=== PATIENT | female | born 1995 | race Caucasian/White ===

== ENCOUNTER → 2016-05-31 | Outpatient (CLI) | payer OTHER ==
[~2016-05-31] MED LIST: ADAP0.05 TOP; DICL-201 PO; GADAVIST IV PRN; RIZA10TA18 PO; SULF800T23 PO; TOPI25TA10 PO
--- NOTE | 2016-05-31 07:49 | DIAGNOSTIC IMAGING REPORT ---
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 This is unchanged since MRI of August 15, 2012. The configuration of the cerebellar tonsils is normal. The findings do not meet criteria for a Chiari 1 malformation. Electronically signed by: Evin Coffman M.D. 05/31/2016 10:18 AM Dictated Date/Time: 05/31/2016 10:16 AM ORIGINAL REPORT MRI OF THE BRAIN WITHOUT AND WITH IV CONTRAST CLINICAL HISTORY: Exertional headaches. COMPARISON STUDY: MRI of brain August 15, 2012. TECHNIQUE: Utilizing a 1.5 Crista magnet and dedicated coil, multiplanar, multiecho imaging of the brain was performed pre and postcontrast administration. IV administration of 6.5 mL of Gadavist contrast was uneventful. FINDINGS: There are no areas of restricted diffusion. No acute intracranial hemorrhage, midline shift or mass effect is present. Brain volume is normal. Ventricular system is normal. The basilar cisterns are patent. There are no extra-axial collections. Flow-voids for the major intracranial vessels are present. No intracranial mass or pathologic enhancement is identified. No areas of signal abnormality are identified. Calvarial signal is maintained. Orbits are unremarkable. There is mild polypoid mucosal thickening of the sphenoid and ethmoid sinuses. IMPRESSION: 1. Unremarkable MRI of the brain. 2. Mild mucosal thickening of the sphenoid and ethmoid sinuses. Electronically signed by: Evin Coffman M.D. 05/31/2016 7:48 AM Dictated Date/Time: 05/31/2016 7:39 AM
== END | disposition home or self-care (01) ==
LOC: C.MRIBC 06:56
PROVIDERS: ATTEND Psychiatry & Neurology Neurology
DX: G44.84 Primary exertional headache (principal)

== ENCOUNTER → 2016-11-29 | Outpatient (CLI) | payer OTHER ==
[~2016-11-29] MED LIST changes: -GADAVIST IV PRN
--- NOTE | 2016-11-29 16:17 | DIAGNOSTIC IMAGING REPORT ---
CERVICAL WITHOUT CONTRAST HISTORY: Pain. Neuropathy. NECK PAIN TECHNIQUE: Multiplanar multisequence MRI of the cervical spine was performed without the use of contrast. COMPARISON STUDY: None. FINDINGS: Signal characteristics the vertebral bodies as well as intervertebral discs are unremarkable. The characteristics of the cervical cord are within normal limits. Mild reversal of the normal cervical curvature. C2-C3: No significant central canal or neural foraminal narrowing. C3-C4: No significant central canal or neural foraminal narrowing. C4-C5: No significant central canal or neural foraminal narrowing. C5-C6: No significant central canal or neural foraminal narrowing. C6-C7: No significant central canal or neural foraminal narrowing. C7-T1: No significant central canal or neural foraminal narrowing. IMPRESSION: 1. No evidence for disc herniation or spinal stenosis. 2. Mild reversal of the normal cervical curvature consistent with muscular spasm. The above report was generated using voice recognition software. It may contain grammatical, syntax or spelling errors. Electronically signed by: Cy Perry M.D. 11/29/2016 4:16 PM Dictated Date/Time: 11/29/2016 4:12 PM
== END | disposition home or self-care (01) ==
LOC: C.MRIBC 15:21
PROVIDERS: ATTEND Physician Assistant
DX: M54.2 Cervicalgia (principal)

== ENCOUNTER → 2016-12-06 | Outpatient (CLI) | payer OTHER ==
[2016-12-06 14:28] LABS: BLOOD UREA NITROGEN 17 mg/dl (7-18); BUN/CREATININE RATIO 18.8 (10-20); CALCIUM 9.3 mg/dl (8.5-10.1); CARBON DIOXIDE 29 mmol/L (21-32); CHLORIDE 105 mmol/L (98-107); CREATININE 0.88 mg/dl (0.60-1.20); GLUCOSE 69 mg/dl (70-99); POTASSIUM 3.7 mmol/L (3.5-5.1); SODIUM 139 mmol/L (136-145)
[2016-12-13 12:53] LABS: ANTI-SS-A <1.0 NEG AI (<1.0 NEG); ANTI-SS-B <1.0 NEG AI (<1.0 NEG); IGA SERUM 119 mg/dL (81-463); TIS TRANS IGA 1 U/mL (<4); TRYPTASE**TC 34484X 6 ng/mL (<11); VITAMIN A** TC 921X 64 mcg/dL (38-98)
== END | disposition home or self-care (01) ==
LOC: C.LABBC 11:12
PROVIDERS: ATTEND Pediatrics Pediatric Hematology-Oncology
DX: L70.0 Acne vulgaris (principal); J30.9 Allergic rhinitis, unspecified; R53.83 Other fatigue; R20.2 Paresthesia of skin; R00.0 Tachycardia, unspecified

== ENCOUNTER → 2017-01-15 | Outpatient (CLI) | payer OTHER ==
[2017-01-15 17:34] LABS: BASO % 0.2 %; BASO ABS # 0.02 K/uL (0-0.2); COMPLETE YES; EOS % 2.5 %; HEMATOCRIT 41.7 % (37-47); IG% 0.2 %; LYMPH % 22.9 %; LYMPH ABS # 1.94 K/uL (1.2-3.4); MEAN CELL VOLUME 94.3 fL (80-100); MEAN CORPUSCULAR HEMOGLOBIN 31.2 pg (25-34); MEAN CORPUSCULAR HGB CONC 33.1 g/dl (32-36); MEAN PLATELET VOLUME 11.4 fL (7.4-10.4); MONO % 8.4 %; NEUT % 65.8 %; PLATELET COUNT 222 K/uL (130-400); RED BLOOD COUNT 4.42 M/uL (4.2-5.4); WHITE BLOOD COUNT 8.48 K/uL (4.8-10.8)
[2017-01-15 17:43] LABS: ALT/SGPT 17 U/L (12-78); AST/SGOT 16 U/L (15-37); BLOOD UREA NITROGEN 19 mg/dl (7-18); CALCIUM 9.4 mg/dl (8.5-10.1); CARBON DIOXIDE 27 mmol/L (21-32); CHLORIDE 105 mmol/L (98-107); CREATININE 0.89 mg/dl (0.60-1.20); GLUCOSE 74 mg/dl (70-99); POTASSIUM 3.9 mmol/L (3.5-5.1); SODIUM 139 mmol/L (136-145)
[2017-01-15 17:54] LABS: ALKALINE PHOSPHATASE 56 U/L (45-117); THYROID STIMULATING HORMONE 0.818 uIu/ml (0.300-4.500)
[2017-01-15 18:01] LABS: LYME DISEASE AB IGG NEG (NEG); LYME DISEASE AB IGM NEG (NEG)
[2017-01-17 14:50] LABS: EBV EARLY ANTIGEN AB <9.00 U/ML
== END | disposition home or self-care (01) ==
LOC: C.LABBC 13:58
PROVIDERS: ATTEND Psychiatry & Neurology Neurology
DX: G44.209 Tension-type headache, unspecified, not intractable (principal); R53.83 Other fatigue; B27.90 Infectious mononucleosis, unspecified without complication; R10.84 Generalized abdominal pain; M54.2 Cervicalgia; M54.5 Low back pain

== ENCOUNTER 2022-09-07 07:45 | Inpatient (IN) ==
--- NOTE | 2022-09-07 08:02 | History & Physical Report ---
Date of Service September 07, 2022 Assessment & Plan (1) Encounter for induction of labor: Plan: Patient is a 27 yo at 41 0/7 WGA presenting to labor and delivery for induction d/t postdates. Blood type: O+, GBS neg, rubella immune Plan to start oxytocin/Hannon and rupture membranes when able Proceed with labor and vaginal delivery (2) 40 weeks gestation of : Admission and Anticipated Discharge Date Admission Date: September 07, 2022 History of Present Illness Chief Complaint: induction of labor Primary Care Provider: Geovanna Tejada MD Patient is a 27 yo female currently at 41 0/7 WGA with an TIFFANY 08/31/2022 as determined by LMP who is here for induction of labor d/t post dates. 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 movement present; - fluid loss; - bloody show External FHT and external uterine monitors used; category 1 tracing; normal FHT variability Had regular appointments with OB. Labs: (01/22/2023) Blood type: O+ Antibody screen: neg Hgb: 12.1 (today) Hct: 35.6 (today) WBC: 7.40 (today) Plt: 203 (today) Rubella: immune VDRL/RPR: neg Gonorrhea: neg Chlamydia: neg HIV: neg HbSAg: neg GBS: neg Allergies Allergy/AdvReac Type Severity Reaction Status Date / Time No Known Allergies Allergy Verified 09/06/22 13:37 Home Medications Medication Instructions Recorded Confirmed Type epinephrine 0.3 mg/0.3 mL 0.3 mg (0.3 mL) IM Q10M PRN 10/16/19 09/07/22 Rx injection, auto-injector anaphylaxis #2 ea prenat.vits,andi,[id number] 1 tab PO DAILY 01/19/22 09/07/22 History Patient History Medical History (Updated 09/07/22 @ 08:00 by Rhonda Lin DO) Abdominal pain Anxiety Bloating Constipation History of vesicoureteral reflux IBS (irritable bowel syndrome) Microscopic hematuria Migraines POTS (postural orthostatic tachycardia syndrome) follows with Kip Gloria Recurrent UTI Scarring of kidney Varicella vaccination Surgical History History of colonoscopy History of general anesthesia given [place] for urology procedure as a child Family History Mother Mast cell activation Melanoma Sister Mast cell activation Brother Allergic rhinitis Father Eczema Melanoma Grandfather (Paternal) Prostate cancer Other No family history of adverse response to anesthesia Denies family history of Ovarian cancer Breast cancer Colorectal cancer Social History (Updated 09/07/22 @ 07:59 by Sarah Vaz RN) Smoking Status: Never smoker Second Hand Exposure: No; Do You Dip or Chew Tobacco: No; Hx Alcohol Use: No (Not during ) Hx Substance Use: No Preferred Language: [place] Rican Communication Ability: Effective Bulb Packer Required: No Beliefs That Will Affect Care: None marital status: marital status details: Sotero Jewell (23) [phone] Current Living Situation: Spouse and Family Current Living Situation Comment: lives with spouse, parents, sister, dogs current occupational status: employed current occupation: Med Student Other Information That Helps Us Care for You: No Feels Safe at Home: Yes Safety Concerns: Feels Safe At This Time Diet: regular Assistive Devices: None Review of Systems Denies fever, chills, sweats. Denies SOB, difficulty breathing, chest pain, palpitations, and chest pressure. Denies breast pain. Denies dysuria. Denies headache or changes in vision. Physical Exam Genitourinary: Manual OB Exam: + cervical dilation fingertip, + cervical effacement 60% and + station -2 OB Exam Monitor Tracing: + external FHT monitor used, + external uterine monitor used, + category I and + normal FHT variability; no early decelerations present, no late decelerations present and no variable decelerations Supervising Physician Co-Signing Physician Notes Patient seen with resident and agree with the above findings and plan Resident Activity Tracking Resident Involvement: Resident Care Provided Care Provided: OB Delivery
[2022-09-07] MEDS ORDERED: LIDOCAINE 1% LOCAL 20 ML VIAL INFIL PRN (08:35)
[2022-09-07] MEDS ORDERED: OXYTOCIN 30 UNITS/500 ML BAG IV PRN ×2 (08:35→08:37)
[2022-09-07 09:08] LABS: Hematocrit (blood only) 35.6 % (37.0-47.0); Hemoglobin 12.1 g/dl (12.0-16.0); Mean Corpuscular Hemoglobin 31.5 pg (25.0-34.0); Mean Corpuscular Volume 92.7 fL (80.0-100.0); Mean Platelet Volume 10.7 fL (9.4-12.4); Platelet Count 203 K/uL (130-400); RDW Coefficient of Variation 13.2 % (11.5-14.5); RDW Standard Deviation 45.1 fL (36.4-46.3); Red Blood Count 3.84 M/uL (4.20-5.40)
[2022-09-07] MEDS: LACTATED RINGER'S 1,000 ML IV PRN ×3 (09:26→16:41)
[2022-09-07] MEDS ORDERED: SODIUM CHLORIDE 0.9% PF INJ 10 ML VIAL ONE (13:39)
[2022-09-07] MEDS ORDERED: fentaNYL citrate PF 100 MCG/2 ML VIAL ONE (13:39)
[2022-09-07] MEDS ORDERED: ePHEDrine sulfate 50 MG/ML AMP ONE (13:39)
[2022-09-07] MEDS ORDERED: BUPIVACAINE 0.25% PF 30 ML VIAL ONE (13:39)
[2022-09-07] MEDS ORDERED: LIDOCAINE 2%/EPINEPHRINE 1:200,000 20 ML PF ONE (13:39)
[2022-09-07] MEDS ORDERED: fentaNYL 2MCG/ML ROPIVACAINE 1.25MG/ML 100 ML BAG EPI ONE (13:40)
[2022-09-07] MEDS ORDERED: SODIUM CHLORIDE 0.9% PF INJ 10 ML VIAL EPI PRN (13:50)
[2022-09-07] MEDS ORDERED: fentaNYL 2MCG/ML ROPIVACAINE 1.25MG/ML 100 ML BAG EPI PRN (13:50)
[2022-09-07] MEDS ORDERED: SODIUM CHLORIDE 0.9% PF INJ 10 ML VIAL EPI STA (13:50)
[2022-09-07] MEDS ORDERED: LIDOCAINE 2%/EPINEPHRINE 1:200,000 20 ML PF EPI STA (13:50)
[2022-09-07] MEDS ORDERED: fentaNYL citrate PF 100 MCG/2 ML VIAL EPI PRN (13:50)
[2022-09-07] MEDS ORDERED: fentaNYL citrate PF 100 MCG/2 ML VIAL EPI STA (13:50)
[2022-09-07] MEDS ORDERED: BUPIVACAINE 0.25% PF 30 ML VIAL EPI PRN (13:50)
[2022-09-07] MEDS ORDERED: LIDOCAINE 2% MPF LOCAL 5 ML VIAL EPI PRN (13:50)
[2022-09-07] MEDS ORDERED: ePHEDrine sulfate 50 MG/ML AMP IV PRN (13:50)
[2022-09-07] MEDS ORDERED: NALOXONE HCL 1 MG in SODIUM CHLORIDE 0.9% 1000ML 1,000 ML IV PRN (13:50)
[2022-09-07] MEDS ORDERED: diphenhydrAMINE 50 MG/ML VIAL IV PRN (13:50)
[2022-09-07] MEDS ORDERED: NALBUPHINE HCL INJ 10 MG/ML AMP IV PRN (13:50)
[2022-09-07] MEDS ORDERED: BUPIVACAINE 0.25% PF 30 ML VIAL EPI STA (13:50)
[2022-09-07] MEDS ORDERED: NALOXONE HCL 0.4 MG/1 ML VIAL/CARP IV PRN (13:50)
[2022-09-07] MEDS ORDERED: ROPIVACAINE 0.5% PF 5 MG/ML 20 ML VIAL EPI PRN (13:50)
--- NOTE | 2022-09-07 13:53 | Anesthesiology Consultation ---
Date of Service September 07, 2022 Assessment & Plan (1) Encounter for pre-operative examination: Chart Review Chart Review: Patient NOT seen in Pre Admission Testing and Acceptable Risk for Labor Epidural Consults Requested none History Height/Weight Height: 5 ft 9 in Weight: 84.368 kg Allergies Allergy/AdvReac Type Severity Reaction Status Date / Time No Known Allergies Allergy Verified 09/06/22 13:37 Medications Home Medications Medication Instructions Recorded Confirmed Last Taken epinephrine 0.3 mg/0.3 mL 0.3 mg (0.3 mL) IM Q10M PRN 10/16/19 09/07/22 Unknown injection, auto-injector anaphylaxis #2 ea prenat.vits,andi,[id number] 1 tab PO DAILY 01/19/22 09/07/22 09/06/22 Active Medications Generic Name Dose Route Start Last Admin Trade Name Freq PRN Reason Stop Dose Admin Lactated Ringer's 1,000 mls @ 125 mls/hr 09/07/22 08:35 09/07/22 13:56 Lr IV 09/09/22 08:34 999 mls/hr .Q8H PRN Administration L&D Protocol Protocol Oxytocin 30 units in 500 mls @ 2 mls/hr 09/07/22 08:37 09/07/22 09:25 Pitocin IV 09/09/22 08:36 0.12 units/hr .Q24H PRN 2 mls/hr Labor Induction/Augmentation Administration Protocol 0.12 UNITS/HR Past Medical History Medical History Abdominal pain Anxiety Bloating Constipation History of vesicoureteral reflux IBS (irritable bowel syndrome) Microscopic hematuria Migraines POTS (postural orthostatic tachycardia syndrome) follows with Km Castro Recurrent UTI Scarring of kidney Varicella vaccination Past Family History Family History Mother Mast cell activation Melanoma Sister Mast cell activation Brother Allergic rhinitis Father Eczema Melanoma Grandfather (Paternal) Prostate cancer Other No family history of adverse response to anesthesia Denies family history of Ovarian cancer Breast cancer Colorectal cancer Past Surgical History Surgical History History of colonoscopy History of general anesthesia given [place] for urology procedure as a child Past Anesthesia History No Hx of Anesthesia Complications and No Family Hx of Anesthesia Complications History of PONV No Hx of PONV and No Hx of Motion Sickness Social History Smoking Status: Never smoker Do You Dip or Chew Tobacco: No Hx Alcohol Use: No (Not during ) Alcohol type: hard liquor alcohol intake frequency: a few times a month Hx Substance Use: No substance use type: does not use Physical Exam Vital Signs Last Vital Signs Temp 36.8 C 09/07/22 12:15 Pulse 87 09/07/22 14:23 Resp 18 09/07/22 13:00 BP 105/53 L 09/07/22 14:23 Pulse Ox 98 09/07/22 14:21 Testing Laboratory Results 09/07/22 08:47 Blood Type O Positive 09/07/22 08:47 Antibody Screen NEGATIVE 09/07/22 08:47
[2022-09-07] MEDS: ONDANSETRON INJ 2 MG/ML 2 ML VIAL IV PRN ×2 (15:23→22:47)
[2022-09-07] MEDS ORDERED: NURSING L&D Epidural Breakthrough Pain Update ONE (18:21)
[2022-09-07] MEDS ORDERED: METOCLOPRAMIDE HCL INJ 5 MG/ML 2 ML VIAL IV ONE (18:40)
[2022-09-08] MEDS ORDERED: METHYLERGONOVINE MALEATE 0.2 MG/ML AMP IM ONE (01:24)
[2022-09-08] MEDS ORDERED: HYDROCORTISONE ACETATE 25 MG SUPP PR PRN (01:24)
[2022-09-08] MEDS ORDERED: DIPHTHERIA/TETANUS/PERTUSSIS Vaccine (Tdap, Age 7+yrs) 0.5mL SYR/VL IM ONE (01:24)
[2022-09-08] MEDS ORDERED: miSOPROStoL 200 MCG TAB PR ONE (01:24)
[2022-09-08] MEDS ORDERED: OXYTOCIN 30 UNITS/500 ML BAG IV PRN (01:24)
[2022-09-08] MEDS ORDERED: BENZOCAINE 20% AER SPR 82.5 GM CAN EXT PRN (01:24)
[2022-09-08] MEDS ORDERED: ACETAMINOPHEN 325 MG TAB PO PRN (01:24)
[2022-09-08] MEDS: ceFAZolin 2000MG 2,000 MG/15 ML SYR IV SCH ×3 (03:57→18:31)
[2022-09-08] MEDS: IBUPROFEN 600 MG TAB PO PRN ×4 (03:57→21:21)
[2022-09-08 07:05] LABS: Hematocrit (blood only) 31.6 % (37.0-47.0); Hemoglobin 10.9 g/dl (12.0-16.0)
--- NOTE | 2022-09-08 08:18 | Anesthesia Procedure Note ---
Date of Service September 08, 2022 Anesthesia Post Epidural Note Vital Signs Vital Signs: Temp Pulse Resp BP Pulse Ox O2 Del Method 37.2 C 74 16 102/55 L 97 Room Air 09/08/22 03:40 09/08/22 03:40 09/08/22 03:40 09/08/22 03:06 09/08/22 03:40 09/08/22 03:40 Pain Intensity Back: Pain Intensity: 2 Notes Mental Status: alert / awake / arousable and participated in evaluation Patient Amnestic to Procedure: No Nausea / Vomiting: adequately controlled Pain: adequately controlled Airway Patency, RR, SpO2: stable & adequate BP & HR: stable & adequate Hydration State: stable & adequate Neuraxial Anesthesia: sensory block resolved Anesthetic Complications: no major complications apparent and Pt Satisfied with anesthetic care Epidural: Removed without complications and With tip intact
[2022-09-08] MEDS: PRENATAL VITAMIN 1 TAB PO SCH (08:36)
[2022-09-08] MEDS: DOCUSATE SODIUM 100 MG CAP PO SCH ×2 (08:37→21:21)
[2022-09-08] MEDS: FERROUS SULFATE 325 MG TAB PO SCH (08:37)
--- NOTE | 2022-09-08 08:47 | Delivery Summary ---
DATE OF SERVICE: 09/08/2022 PROCEDURE: Normal spontaneous vaginal delivery with first-degree right vaginal sidewall superficial laceration repair. SURGEON: Ivan Castro MD. PREOPERATIVE DIAGNOSES: 1. Single intrauterine at 41 weeks 1 day gestational age. 2. Roberto-Danlos. 3. POTS syndrome. POSTOPERATIVE DIAGNOSES: 1. Single intrauterine at 41 weeks 1 day gestational age 2. Roberto-Danlos. 3. POTS syndrome. 4. Status post procedure. 5. A prolonged delivery of placenta. ESTIMATED BLOOD LOSS: 400 mL. DRAINS: Straight cath at the completion of the case at 800 mL. COMPLICATIONS: None. FINDINGS: Viable with weight and Apgars pending. DESCRIPTION OF PROCEDURE: The patient progressed to 10 cm dilated, 100% effaced, positive 2 station, pushed over intact perineum with epidural anesthesia and delivered a viable with weight and Apgars as noted above. Head of the delivered in KIRBY position, restituted to right transverse . No nuchal cord was noted. Body and shoulders quickly followed. was noted to be vigorous soon after delivery and 1 minute delayed cord clamping was initiated. Cord was then double clamped a nd cut. remained on maternal abdomen. Cord blood was obtained. Attention was then turned t o delivery of the placenta. The placenta did not deliver spontaneously and approximately 35-40 minut es were allowed and placenta showed no signs of delivery. Gentle cord traction was continued, uterine massage and the patient intermittent pushing did not achieve delivery of the placenta. After approx imately 35-40 minutes, we discussed with the patient that we would need to do a manual extraction of the placenta. The placenta was grasped manually and delivered with inspection appearing showing comp lete placental bed with no signs of missing placenta. A secondary sweep of the uterus was performed with no additional placenta obtained or noted. A right vaginal wall laceration extended to the right labia was noted. This was repaired with 3-0 Vicryl continuous running stitch. Hemostasis was noted . Needle, sponge, and instrument counts were correct at the completion of the case. The patient was given Methergine and Cytotec after delivery of the placenta and received a 24-hour course of Ancef. Job ID: [id number]
[2022-09-09] MEDS: IBUPROFEN 600 MG TAB PO PRN ×2 (02:45→08:17)
[2022-09-09] MEDS: FERROUS SULFATE 325 MG TAB PO SCH (08:17)
[2022-09-09] MEDS: PRENATAL VITAMIN 1 TAB PO SCH (08:17)
[2022-09-09] MEDS: DOCUSATE SODIUM 100 MG CAP PO SCH (08:17)
--- NOTE | 2022-09-09 08:51 | Obstetrical Progress Note ---
Date of Service September 09, 2022 Assessment & Plan (1) Normal vaginal delivery: Recovering well from vaginal delivery followed by manual extraction of placenta. Once completed 24hours antibiotic and recovery/observation, stable for D/C home which patient desires and requests. Instructions reviewed and questions answered to patient satisfaction. For 6-week office follow up. Subjective Ambulation: ambulating normally Voiding: no voiding problems Passing Gas:: Yes Diet Tolerance:: regular diet Lochia:: Small Feeding Type:: breast feeding Physical Exam Constitutional WD/WN, vitals as above Neck normal visual inspection Respiratory normal respiratory effort and able to speak in complete sentences; no respiratory distress and no labored breathing Cardiovascular Extremities: + edema (mild appropriate pedal) Chest (Breasts) Chest: normal inspection of chest Gastrointestinal (Abdomen) Inspection/Auscultation: abdomen normal to inspection Soft, postgravid per staff exams as patient with baby on abdomen and not disturbed during my visit. Musculoskeletal Sitting upright in bed with normal movements Skin no rashes, warm and dry Psychiatric A+Ox3, euthymic affect Results & Data Vital Signs (Past 12 Hours) Vital Signs Temp Pulse Resp BP Pulse Ox O2 Del Method 09/08/22 23:55 98.2 F 59 L 16 91/53 L 97 Room Air
[2022-09-09] MEDS ORDERED: bisacodyL 5 MG TABEC PO SCH (20:00)
[2022-09-10] MEDS ORDERED: bisacodyL 10 MG SUPP PR PRN
== END 2022-09-09 14:30 | disposition home or self-care (01) | DRG 806 ==
LOC: 4S1 07:45 → 4E2 09-08 05:07

== ENCOUNTER 2024-09-01 08:08 | Inpatient (IN) ==
[2024-09-01] MEDS ORDERED: OXYTOCIN 30 UNITS/NSS 30 UNITS/500 ML BAG IV PRN ×2 (08:32→21:10)
[2024-09-01] MEDS ORDERED: CALCIUM CARBONATE 500 MG CHEWABLE TAB PO PRN (08:32)
[2024-09-01] MEDS ORDERED: LIDOCAINE 1% LOCAL 20 ML VIAL INFIL PRN (08:32)
--- NOTE | 2024-09-01 08:51 | History & Physical Report ---
Date of Service September 01, 2024 Assessment & Plan (1) Encounter for supervision of normal in multigravida: Plan: Tori is a 29-year-old G2, P1 currently at 40 weeks 0 days gestational age presents for induction of labor 1. Fetus: Category 1 tracing 2. Labor: Start with oxytocin per regular protocol for rupture membranes when appropriate 3. GBS negative 4. Vitals within normal limits (2) Roberto-Danlos syndrome: (3) POTS (postural orthostatic tachycardia syndrome): (4) Term : Admission and Anticipated Discharge Date Admission Date: September 01, 2024 History of Present Illness Primary Care Provider: Geovanna Tejada MD Tori is a 29-year-old G2, P1 currently at 40 weeks 0 days gestational age presents for induction of labor. complicated by questionable Roberto- Danlos and POTS syndrome. OB Labs: Blood Type O Positive 02/12/24 Antibody Screen NEGATIVE 02/12/24 Hgb 12.2 g/dl (12.0-16.0) 06/16/24 Hct 37.8 % (37.0-47.0) 06/16/24 MCV 92.5 fL (80.0-100.0) 02/12/24 Plt Count 235 K/uL (130-400) 02/12/24 VZV IgG Antibody 220.40 index 08/14/19 Rubella IgG Antibody Immune (Immune) 02/12/24 RPR Nonreactive (Nonreactive) 01/22/22 Treponema pallidum Ab Negative (Negative) 06/16/24 Hep Bs Antigen Negative (Negative) 02/12/24 Hep Bs Antigen NON-REACTIVE (NON-REACTIVE) 01/22/22 Hepatitis C Antibody Negative (Negative) 02/12/24 Hepatitis C Ab (EIA) NON-REACTIVE (NON-REACTIVE) 01/22/22 HIV 1&2 Ab/P24 Ag 4thGn Negative (Negative) 02/12/24 HIV (1&2) Ag & Ab Conf NON-REACTIVE (NON-REACTIVE) 01/22/22 Glucose 1 Hr 50 gm 96 mg/dl (70-130) 06/16/24 OB Optional Labs: Chlamydia trachomatis RNA Not Detected (NotDetected) 02/12/24 Neisseria gonorrhoeae RNA Not Detected (NotDetected) 02/12/24 Thyroid Stimulating Hormone (TSH) 0.713 uIu/ml (0.300-4.500) 10/16/19 Allergies Allergy/AdvReac Type Severity Reaction Status Date / Time No Known Allergies Allergy Verified 08/31/24 10:40 Home Medications Medication Instructions Recorded Confirmed Type epinephrine 0.3 mg/0.3 mL 0.3 mg (0.3 mL) IM Q10M PRN 10/16/19 09/01/24 Rx injection, auto-injector anaphylaxis #2 ea prenat.vits,andi,[id number] 1 tab PO DAILY 01/19/22 09/01/24 History cranberry fruit 400 mg capsule 400 mg PO DAILY 05/23/23 09/01/24 History d-mannose 500 mg capsule (AZO 500 mg PO DAILY #90 caps 11/18/23 09/01/24 Rx D-Mannose) Lactobacillus acidophilus PO 02/03/24 08/31/24 History [Probiotic Acidophilus] sodium chloride 1,000 mg soluble 1,000 mg PO BID #60 tabs 06/02/24 08/31/24 Rx tablet sertraline 100 mg tablet 150 mg (1.5 x 100 mg) PO DAILY 30 08/16/24 09/01/24 Rx days #45 tabs Patient History Medical History Varicose vein of leg Microscopic hematuria Recurrent UTI Acne Allergic rhinitis Chronic idiopathic constipation Premenstrual syndrome Common migraine without aura Exertional headache Infectious mononucleosis Sciatica Sinus tachycardia Tension type headache Varicella vaccination Scarring of kidney Anxiety IBS (irritable bowel syndrome) Surgical History History of colonoscopy History of general anesthesia Family History Mother Mast cell activation Melanoma Sister Mast cell activation Brother Allergic rhinitis Father Eczema Melanoma Grandfather (Paternal) Prostate cancer Other No family history of adverse response to anesthesia Denies family history of Ovarian cancer Breast cancer Colorectal cancer Social History (Updated 09/01/24 @ 08:24 by Monet Bajwa RN) Smoking Status: Never smoker Second Hand Exposure: No; Do You Dip or Chew Tobacco: No; Hx Alcohol Use: No (Not during ) Hx Substance Use: No Preferred Language: Mongolian Communication Ability: Effective Visual Impairment: No Limitations Hearing Ability: Normal Manager Willow Required: No Beliefs That Will Affect Care: None marital status: marital status details: Sotero Jewell (25) [phone] Current Living Situation: Spouse and Family Current Living Situation Comment: lives with spouse, parents, child, dog current occupational status: employed current occupation: Med Student Other Information That Helps Us Care for You: No Feels Safe at Home: Yes Safety Concerns: Feels Safe At This Time Diet: regular Dental Care, Regularly: Yes Gender Identity: Female Assistive Devices: None Physical Exam Genitourinary: Manual OB Exam: + cervical dilation 2 cm, + cervical effacement 50% and + station high OB Exam Monitor Tracing: + external FHT monitor used, + external uterine monitor used, + category I and + normal FHT variability Results & Data Vital Signs (Past 12 Hours) Vital Signs Temp Pulse Resp BP 09/01/24 08:30 36.9 C 104 H 20 109/68 Coding Level of Care Code None Diagnoses Encounter for supervision of normal in multigravida 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
[2024-09-01 09:08] LABS: Hematocrit (blood only) 32.2 % (37.0-47.0); Hemoglobin 10.5 g/dl (12.0-16.0); Mean Corpuscular Hemoglobin 29.2 pg (25.0-34.0); Mean Corpuscular Hgb Conc 32.6 g/dL (32.0-36.0); Mean Corpuscular Volume 89.4 fL (80.0-100.0); Mean Platelet Volume 10.4 fL (9.4-12.4); Platelet Count 207 K/uL (130-400); RDW Coefficient of Variation 12.7 % (11.5-14.5); RDW Standard Deviation 42.3 fL (36.4-46.3); White Blood Count 8.16 K/ul (4.8-10.8)
[2024-09-01] MEDS: LACTATED RINGER'S 1,000 ML IV PRN (09:24)
[2024-09-01] MEDS: OXYTOCIN 30 UNITS/NSS 30 UNITS/500 ML BAG IV PRN (09:30)
[2024-09-01] MEDS: LIDOCAINE 2%/EPINEPHRINE 1:200,000 20 ML PF ONE (12:18)
[2024-09-01] MEDS: BUPIVACAINE 0.25% PF 30 ML VIAL ONE (12:20)
[2024-09-01] MEDS: fentANYL 2 MCG/ML BUPIVacaine 0.125%-NSS 100ML BAG ONE (12:22)
[2024-09-01] MEDS: ePHEDrine sulfate 50 MG/ML AMP ONE (12:35)
[2024-09-01] MEDS: SODIUM CHLORIDE 0.9% PF INJ 10 ML VIAL ONE (12:46)
[2024-09-01] MEDS: fentaNYL citrate PF 100 MCG/2 ML VIAL ONE (12:47)
[2024-09-01] MEDS ORDERED: ePHEDrine sulfate 50 MG/ML AMP IV PRN (12:50)
[2024-09-01] MEDS ORDERED: NALBUPHINE HCL INJ 10 MG/ML AMP IV PRN (12:50)
[2024-09-01] MEDS ORDERED: BUPIVACAINE 0.25% PF 30 ML VIAL EPI PRN (12:50)
[2024-09-01] MEDS ORDERED: SODIUM CHLORIDE 0.9% PF INJ 10 ML VIAL EPI PRN (12:50)
[2024-09-01] MEDS ORDERED: LIDOCAINE 2% MPF LOCAL 5 ML VIAL EPI PRN (12:50)
[2024-09-01] MEDS ORDERED: NALOXONE HCL 1 MG in SODIUM CHLORIDE 0.9% 1,000 ML IV PRN (12:50)
[2024-09-01] MEDS ORDERED: diphenhydrAMINE 50 MG/ML VIAL IV PRN (12:50)
[2024-09-01] MEDS ORDERED: LIDOCAINE 2%/EPINEPHRINE 1:200,000 20 ML PF EPI STA (12:50)
[2024-09-01] MEDS ORDERED: fentaNYL citrate PF 100 MCG/2 ML VIAL EPI STA (12:50)
[2024-09-01] MEDS ORDERED: SODIUM CHLORIDE 0.9% PF INJ 10 ML VIAL EPI STA (12:50)
[2024-09-01] MEDS ORDERED: BUPIVACAINE 0.25% PF 30 ML VIAL EPI STA (12:50)
[2024-09-01] MEDS ORDERED: ROPIVACAINE 0.5% PF 5 MG/ML 20 ML VIAL EPI PRN (12:50)
[2024-09-01] MEDS ORDERED: fentaNYL citrate PF 100 MCG/2 ML VIAL EPI PRN (12:50)
[2024-09-01] MEDS ORDERED: NALOXONE HCL 0.4 MG/1 ML VIAL/CARP IV PRN (12:50)
--- NOTE | 2024-09-01 12:50 | Anesthesiology Consultation ---
Date of Service September 01, 2024 Assessment & Plan Chart Review Chart Review: Patient NOT seen in Pre Admission Testing and Acceptable Risk for Labor Epidural Consults Requested none ASA ASA2 Proposed Anesthesia Anesthesia Type: Labor Epidural Risk / Benefits Reviewed With: PT / POA / Parent / Guardian, Accepts Plan and Informed Consent Obtained History Height/Weight Height: 5 ft 9 in Weight: 87.135 kg Allergies Allergy/AdvReac Type Severity Reaction Status Date / Time No Known Allergies Allergy Verified 08/31/24 10:40 Medications Home Medications Medication Instructions Recorded Confirmed Last Taken epinephrine 0.3 mg/0.3 mL 0.3 mg (0.3 mL) IM Q10M PRN 10/16/19 09/01/24 Unknown injection, auto-injector anaphylaxis #2 ea prenat.vits,andi,[id number] 1 tab PO DAILY 01/19/22 09/01/24 06/30/24 cranberry fruit 400 mg capsule 400 mg PO DAILY 05/23/23 09/01/24 09/01/24 07:00 d-mannose 500 mg capsule (AZO 500 mg PO DAILY #90 caps 11/18/23 09/01/24 09/01/24 07:00 D-Mannose) Lactobacillus acidophilus PO 02/03/24 08/31/24 Unknown [Probiotic Acidophilus] sodium chloride 1,000 mg soluble 1,000 mg PO BID #60 tabs 06/02/24 08/31/24 Unknown tablet sertraline 100 mg tablet 150 mg (1.5 x 100 mg) PO DAILY 30 08/16/24 09/01/24 08/31/24 20:00 days #45 tabs Active Medications Generic Name Dose Route Start Last Admin Trade Name Freq PRN Reason Stop Dose Admin Lactated Ringer's 1,000 mls @ 125 mls/hr 09/01/24 08:32 09/01/24 12:41 Lr IV 09/03/24 08:31 999 mls/hr .Q8H PRN Infusion L&D Protocol Protocol Oxytocin 30 units in 500 mls @ 10 mls/hr 09/01/24 09:00 09/01/24 11:55 Pitocin 30 Units/Nss IV 09/03/24 08:59 0.6 units/hr .Q24H PRN 10 mls/hr Labor Induction/Augmentation Titration Protocol 0.6 UNITS/HR Past Medical History Medical History (Updated 09/01/24 @ 09:13 by Monet Bajwa, SANTOS) History of cold urticaria Varicose vein of leg Microscopic hematuria Recurrent UTI Acne Allergic rhinitis Chronic idiopathic constipation Premenstrual syndrome Common migraine without aura Exertional headache Infectious mononucleosis Sciatica Sinus tachycardia Tension type headache Varicella vaccination Scarring of kidney Anxiety IBS (irritable bowel syndrome) Exercise / Class Metabolic Activity II 4-5 Yardwork/Stairs/Walk up hill Past Family History Family History Mother Mast cell activation Melanoma Sister Mast cell activation Brother Allergic rhinitis Father Eczema Melanoma Grandfather (Paternal) Prostate cancer Other No family history of adverse response to anesthesia Denies family history of Ovarian cancer Breast cancer Colorectal cancer Past Surgical History Surgical History History of colonoscopy History of general anesthesia given [place] for urology procedure as a child Past Anesthesia History No Hx of Anesthesia Complications and No Family Hx of Anesthesia Complications History of PONV No Hx of PONV and No Hx of Motion Sickness Social History Smoking Status: Never smoker Do You Dip or Chew Tobacco: No Hx Alcohol Use: No (Not during ) Alcohol type: hard liquor alcohol intake frequency: a few times a month Hx Substance Use: No substance use type: does not use Physical Exam Vital Signs Last Vital Signs Temp 36.8 C 09/01/24 11:54 Pulse 80 09/01/24 12:47 Resp 20 09/01/24 11:54 BP 91/52 L 09/01/24 12:47 Pulse Ox 91 09/01/24 12:47 ENMT Mouth: no dentition abnormality Thyromental Distance: > or= 3.5 Finger Breadths Mallampati Class: II Neck normal visual inspection Respiratory normal respiratory effort Auscultation: lungs clear to auscultation bilaterally Cardiovascular Rate/Rhythm: regular rate and regular rhythm Psychiatric Orientation: alert Testing Laboratory Results 09/01/24 08:50
--- NOTE | 2024-09-01 13:26 | Labor Progress Brief Note ---
Date of Service September 01, 2024 Subjective Reason For Note: Routine Evaluation Assessment & Plan (1) Encounter for supervision of normal in multigravida: Plan: Tori is a 29-year-old G2, P1 currently at 40 weeks 0 days gestational age presents for induction of labor 1. Fetus: Category 1 tracing 2. Labor: Start with oxytocin per regular protocol. Rupture of membranes for meconium 3. GBS negative 4. Vitals within normal limits (2) Roberto-Danlos syndrome: (3) POTS (postural orthostatic tachycardia syndrome): (4) Term : Admission and Anticipated Discharge Date Admission Date: September 01, 2024 Physical Exam Genitourinary: normal external appearance Manual OB Exam: + cervical dilation 3 cm, + cervical effacement 70%, + station -2 and + amniotic fluid (AROM) meconium OB Exam Monitor Tracing: + external FHT monitor used, + external uterine monitor used, + category I and + normal FHT variability Results & Data Vital Signs (Past 12 Hours) Vital Signs Temp Pulse Resp BP Pulse Ox 09/01/24 13:20 71 94 09/01/24 13:19 79 93 09/01/24 13:15 69 98 09/01/24 13:14 72 105/51 L 09/01/24 13:10 74 98 09/01/24 13:05 80 89 L 09/01/24 13:00 70 106/53 L 98 09/01/24 12:59 73 96/46 L 09/01/24 12:55 86 97 09/01/24 12:53 77 92 09/01/24 12:52 77 105/52 L 09/01/24 12:50 74 98 09/01/24 12:47 80 09/01/24 12:47 85 91/52 L 91 09/01/24 12:45 74 97 09/01/24 12:43 76 90/50 L 09/01/24 12:41 81 09/01/24 12:41 90 97/50 L 92 09/01/24 12:40 98 09/01/24 12:40 86 09/01/24 12:40 83 90/46 L 09/01/24 12:38 85 102/54 L 09/01/24 12:36 71 101/54 L 09/01/24 12:35 72 98 09/01/24 12:34 68 95/53 L 09/01/24 12:32 70 86/49 L 09/01/24 12:30 71 91/53 L 96 09/01/24 12:28 76 92/50 L 09/01/24 12:25 71 102/50 L 97 09/01/24 12:22 70 93/51 L 09/01/24 12:21 78 98/53 L 09/01/24 12:20 78 99 09/01/24 12:15 98 09/01/24 12:15 77 09/01/24 12:15 76 90 09/01/24 11:54 36.8 C 20 09/01/24 11:51 66 105/56 L 09/01/24 10:53 78 99/49 L 09/01/24 10:39 69 101/51 L 09/01/24 10:25 75 92/55 L 09/01/24 10:11 77 96/52 L 09/01/24 09:54 71 20 151/61 H 09/01/24 09:40 76 101/49 L 09/01/24 08:30 36.9 C 104 H 20 109/68 Coding Level of Care Code None Diagnoses Encounter for supervision of normal in multigravida 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
[2024-09-01] MEDS: ONDANSETRON INJ 2 MG/ML 2 ML VIAL IV PRN (16:11)
[2024-09-01] MEDS: fentANYL 2 MCG/ML BUPIVacaine 0.125%-NSS 100ML BAG EPI PRN (20:38)
[2024-09-01] MEDS: miSOPROStoL 200 MCG TAB PR ONE (20:55)
--- NOTE | 2024-09-01 21:03 | Delivery Summary ---
Vaginal Delivery Summary Date of Service September 01, 2024 Vaginal Delivery Summary and 1st Degree LAC Patient progressed to 10 cm dilated, 100% effaced and +2 station push intact perineum with epidural anesthesia and delivered a viable male with weight and Apgars pending. Head the delivered without difficulty quickly followed by shoulders and body. was noted to have good tone and intermittent spontaneous cry and a 1 minute delayed cord clamping was initiated with continued stimulation of the . Cord was then doubly clamped and cut taken awaiting nursery staff for further care. Cord blood obtained and attention turned to deliver the placenta which had a protracted course but delivered spontaneously with cord traction, uterine massage and maternal pushing. Placenta appeared intact with three-vessel cord on inspection. On speculum perineum vagina and cervix there is noted to be a first-degree perineal laceration which continued up the right labia. The laceration was repaired with 3-0 Vicryl in continuous running stitch. Needle sponge and instrument counts were correct at the completion of the case. Both mother and stable immediate postdelivery timeframe. 800 mcg of Cytotec placed per rectum. No complications noted and blood loss per QBL. [facility] Vaginal Delivery Charge Delivery Type Details: and 1st Degree LAC
[2024-09-01] MEDS ORDERED: DIPHTHER/TETAN/PERTUS Vaccine (Tdap, Adol/Adult) 0.5mL IM ONE (21:10)
[2024-09-01] MEDS ORDERED: bisacodyL 10 MG SUPP PR PRN (21:10)
[2024-09-01] MEDS ORDERED: BENZOCAINE 20% SPRY 85 APPLN/85 GM CAN EXT PRN (21:10)
[2024-09-01] MEDS ORDERED: HYDROCORTISONE ACETATE 25 MG SUPP PR PRN (21:10)
--- NOTE | 2024-09-01 23:18 | Anesthesia Procedure Note ---
Date of Service September 01, 2024 Anesthesia Post Epidural Note Vital Signs Vital Signs: Temp Pulse Resp BP Pulse Ox 36.4 C L 88 16 100/58 L 95 09/01/24 19:01 09/01/24 22:58 09/01/24 21:00 09/01/24 22:58 09/01/24 21:00 Pain Intensity Abdomen: Pain Intensity: 2 Notes Mental Status: alert / awake / arousable Nausea / Vomiting: adequately controlled Pain: adequately controlled Airway Patency, RR, SpO2: stable & adequate BP & HR: stable & adequate Hydration State: stable & adequate Neuraxial Anesthesia: was administered and sensory block is resolving Anesthetic Complications: no major complications apparent and Pt Satisfied with anesthetic care Epidural: Removed without complications and With tip intact
[2024-09-02] MEDS: SERTRALINE HCL 50 MG TABLET PO ONE (00:56)
[2024-09-02] MEDS: IBUPROFEN 600 MG TAB PO PRN (05:11)
[2024-09-02] MEDS: ACETAMINOPHEN 500 MG TAB PO PRN (05:11)
[2024-09-02 06:21] LABS: Hematocrit (blood only) 33.3 % (37.0-47.0)
--- NOTE | 2024-09-02 08:27 | Obstetrical Progress Note ---
Date of Service September 02, 2024 Assessment & Plan (1) Encounter for care and examination after delivery: Day 1 status post vaginal delivery. Patient doing well. Normal vitals and H&H within range. Stable for discharge at 24 hours as preferred Subjective Ambulation: ambulating normally Voiding: no voiding problems Passing Gas:: Yes Diet Tolerance:: regular diet Lochia:: Moderate Feeding Type:: breast feeding Physical Exam Constitutional WD/WN, vitals as above Respiratory normal respiratory effort; no respiratory distress and no labored breathing Cardiovascular Extremities: no calf tenderness Gastrointestinal (Abdomen) Inspection/Auscultation: abdomen normal to inspection; abdomen not distended Percussion/Palpation: abdomen soft; abdomen nontender, no guarding and abdomen not rigid Genitourinary OB Exam Abdomen: + fundal height Fundus: + firm and + relation to umbilicus (Below); not tender or not boggy Results & Data Vital Signs (Past 12 Hours) Vital Signs Temp Pulse Pulse Resp BP BP Pulse Ox 09/02/24 03:55 36.7 C 64 14 94/58 L 09/02/24 00:12 36.7 C 72 16 90/41 L 09/01/24 22:58 88 100/58 L 09/01/24 22:43 70 92/54 L 09/01/24 22:28 75 95/46 L 09/01/24 22:13 72 102/55 L 09/01/24 21:58 72 99/45 L 09/01/24 21:43 107 H 103/64 09/01/24 21:28 71 103/59 L 09/01/24 21:13 68 106/59 L 09/01/24 21:06 81 100/53 L 09/01/24 21:00 16 09/01/24 21:00 76 95 09/01/24 20:55 76 96 09/01/24 20:50 84 97 09/01/24 20:45 94 09/01/24 20:45 79 09/01/24 20:45 77 94 09/01/24 20:43 77 111/60 09/01/24 20:40 96 09/01/24 20:40 80 09/01/24 20:40 80 93 09/01/24 20:35 78 96 09/01/24 20:30 81 100 09/01/24 20:28 72 102/51 L O2 Del Method 09/02/24 03:55 Room Air 09/02/24 00:12 Room Air 09/01/24 22:58 09/01/24 22:43 09/01/24 22:28 09/01/24 22:13 09/01/24 21:58 09/01/24 21:43 09/01/24 21:28 09/01/24 21:13 09/01/24 21:06 09/01/24 21:00 09/01/24 21:00 09/01/24 20:55 09/01/24 20:50 09/01/24 20:45 09/01/24 20:45 09/01/24 20:45 09/01/24 20:43 09/01/24 20:40 09/01/24 20:40 09/01/24 20:40 09/01/24 20:35 09/01/24 20:30 09/01/24 20:28
[2024-09-02] MEDS: DOCUSATE SODIUM 100 MG CAP PO SCH (08:58)
[2024-09-02] MEDS: PRENATAL VITAMIN 1 TAB PO SCH (08:58)
[2024-09-02] MEDS: FERROUS SULFATE 325 MG TAB PO SCH (08:58)
[2024-09-02 18:09] VITALS: RESP 18
[2024-09-02] MEDS: ACETAMINOPHEN 325 MG TAB PO PRN (19:56)
[2024-09-02] MEDS: bisacodyL 5 MG TABEC PO SCH (19:57)
[2024-09-02 20:09] VITALS: PULSE 82; TEMP 97.9; O2SAT 96
[2024-09-02 20:17] VITALS: BP 101/66
== END 2024-09-02 21:10 | disposition home or self-care (01) | DRG 806 ==
LOC: 4S1 08:08 → 4E2 23:45